=== PATIENT | female | born 1965 | race Two or more races ===

== ENCOUNTER 2025-05-18 09:50 | Outpatient (CLI) | payer OTHER ==
[2025-05-18 10:30] LABS: BASO % 0.5 % (0.1-1.2); EOS # 0.09 (0.04-0.54); EOS % 2.2 % (0.7-7.0); HEMATOCRIT 40.3 % (34.1-44.9); HEMOGLOBIN 13.6 g/dL (11.2-15.7); LYMPH # 1.65 (1.18-3.74); LYMPH % 40.7 % (19.3-53.1); MEAN CORPUSCULAR HEMOGLOBIN 28.3 pg (25.6-32.2); MONO # 0.32 (0.24-0.82); MONO % 7.9 % (4.7-12.5); NEUT # 1.96 (1.56-6.13); NEUT % 48.5 % (34.0-71.1); PLATELET COUNT 334 K/uL (163-369); RED BLOOD COUNT 4.81 M/uL (3.93-5.22); RED CELL DISTRIBUTION WIDTH 12.2 % (11.6-14.4)
[2025-05-18 11:46] LABS: CHOL HDL RATIO 2.6 (0-5.0); FREE TRIODOTIRONINE 2.89 pg/ml (2.18-3.98); T4 FREE 1.01 NG/ML (0.76-1.46); TSH 3.58 uIU/mL (0.358-3.74)
== END 2025-05-18 09:52 | disposition home or self-care (01) ==
LOC: LAB 09:50
PROVIDERS: ATTEND Specialist
DX: E55.9 Vitamin D deficiency, unspecified (principal); I11.9 Hypertensive heart disease without heart failure

== ENCOUNTER → 2025-10-05 | Outpatient (CLI) | payer OTHER | END | disposition home or self-care (01) | LOC: MAMO-SONO 12:21 | PROVIDERS: ATTEND Surgery | DX: N60.11 Diffuse cystic mastopathy of right breast (principal); N60.12 Diffuse cystic mastopathy of left breast ==